=== PATIENT | female | born 1945 | race Caucasian/White ===

== ENCOUNTER 2024-06-19 07:42 | Day surgery (SDC) | payer OTHER, SELFPAY ==
[2024-06-19] VITALS (7 sets, daily range): BP systolic 108–129; BP diastolic 56–78; PULSE 59–68; RESP 16–18; TEMP 36.3–37.4; O2SAT 95–97; BMI 28.9
--- NOTE | 2024-06-19 08:37 | PCM.PRE.AN2 ---
ASA Classification* ASA Classification ASA Classification: 2 Assessment & Plan Anesthesia* Anesthesia Assessment Anesthesia Assessment: Discussed sedation and/or anesthesia options, risks, benefits, and alternatives with patient/parents/legal guardian/POA. Questions invited. The patient/parents/legal guardian/POA seems to understand and agrees to proceed with anesthesia plan. Reviewed the physical assessment, medical history, allergy history and patient home medications list prior to surgery/procedure/anesthetic and documented any changes. Performed airway and anesthesia risk assessments. 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 When Was Last Pacemaker Check QUESTION #4 FULL TEXT: You/Your Family Experience fever (hyperthermia) with Anesthesia Last Oral Intake Last Oral intake: Last Oral Intake NPO since 04:30 06/19/24 08:08 Meds taken in AM with sips of Yes 06/19/24 08:08 water? Meds patient instructed to AMLODIPINE,SYNTHROID 06/19/24 08:08 take am of surgery Any additional information?: Yes NPO since: 04:30 (Patient took her meds with sips of water at 4:30 AM.) Meds taken in AM with sips of water?: Yes PONV PONV - plant protection officer: PONV - plant protection officer Female Yes 06/18/24 11:52 HX of Motion Sickness No 06/18/24 11:52 HX of N/V After Surgery No 06/18/24 11:52 Non-Smoker Yes 06/18/24 11:52 Duration of Surgery greater No 06/18/24 11:52 than 60 minutes Number of Risk Factors 2 06/18/24 11:52 PONV Score Moderate Risk 06/18/24 11:52 Height & Weight Height & Weight: Anesthesia: Height & Weight Height 5 ft 3 in 06/19/24 08:08 Weight: 74 kg 06/19/24 08:08 Body Mass Index (BMI) 28.9 06/19/24 08:08 Respiratory Assessment Respiratory Assessment - plant protection officer: Respiratory Tract Infection Hx - plant protection officer Hx Respiratory Tract Infection No 06/18/24 11:52 STOP Sleep Apnea STOP Sleep Apnea - plant protection officer: STOP Sleep Apnea - plant protection officer Hx Hypertension Yes: CONTROLLED WITH MED 06/18/24 11:52 Hx Sleep Apnea No 06/18/24 11:52 CPAP BIPAP Do you snore loudly (louder No 06/18/24 11:52 than talking or can be heard Do you often feel tired/ No 06/18/24 11:52 fatigued/ sleepy during daytime? Has anyone observed you stop No 06/18/24 11:52 breathing during sleep? STOP Results Negative 06/18/24 11:52 QUESTION #5 FULL TEXT : Do you snore loudly (louder than talking or can be heard through closed doors)? 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 Specify any problems Hx of Preganancy in last 3 No 06/18/24 11:52 Months Nurse Filling Out Transfusion DSCHRIBER 06/18/24 11:52 & Questions: Date: 06/18/24 06/18/24 11:52 Time: 11:53 06/18/24 11:52 Patient unable to answer at this time (ie. confused, unrespo /Reproduction History /Reproductive History - plant protection officer: /Reproductive Hx- plant protection officer Hx Now No 06/18/24 11:52 Gestational Age (in weeks): EDC: Hx Hx Para Hx Section SAB No 06/18/24 11:52 PFSH Medical History Wears partial dentures Post-menopausal Alcohol use High cholesterol Gastric reflux Non-smoker Thyroid disease HTN (hypertension) Home Medications ?Medication ?Instructions ?Recorded ?Last Taken ?Type amlodipine 10 mg tablet 10 mg PO QDAY 05/15/24 06/19/24 History atorvastatin 80 mg tablet 80 mg PO QHS 05/15/24 06/18/24 History levothyroxine 100 mcg tablet 100 mcg PO QDAY 05/15/24 06/19/24 History (Synthroid) omeprazole 20 mg capsule,delayed 20 mg PO QDAY 05/15/24 06/18/24 History release ibuprofen 800 mg tablet (IBU) 800 mg PO Q8H PRN pain 06/18/24 Unknown History Allergy/AdvReac Type Severity Reaction Status Date / Time No Known Allergies Allergy Verified 06/19/24 08:06 Family History Mother Heart disease Hypertension Father Heart disease Hypertension Son Heart disease Hypertension Surgical History History of cardiac catheterization Hx of right cataract extraction Hx of left cataract extraction Hx of colonoscopy H/O thyroidectomy Social History Smoking Status: Never smoker alcohol intake: current Review of Systems (Anesthesia) ROS Narrative System reviewed and no additional complaints, except as documented.
--- NOTE | 2024-06-19 09:00 | COLBX_PTH ---
PATIENT: CAROLYNN MORLEY LOC: EN U#:[id number] AGE/SX: 79/F ROOM: RE06/19/[address]: Dr. Greg Franklin MD : 1945 BED: DIS: 06/19/2024 SPEC #: [id number] RECD: 06/19/24 13:27 STATUS: RENATO KAITLIN #: [id number] AMA: 06/19/24 09:[address]: Greg Franklin DEPT: SURGICAL PATHOLOGY RECD BY: Chris Hernandez ENTERED: 06/19/24 13:27 SP TYPE: COLON BX ALVARADO DR: JUA NMIGUEL SWANN Tissues: A - Sigmoid colon biopsy Procedures: Surgery Specimen Level IV HEADER OPERATION: Colonoscopy with biopsy PRE-OP DIAGNOSIS: Encounter for screening for malignant neoplasm of colon TISSUE SUBMITTED: A- Sigmoid polyp biopsy x2 MICROSCOPIC DIAGNOSIS A. Sigmoid colon, polyp x2, biopsy: * Hyperplastic polyp x2. MICROSCOPIC DESCRIPTION Slides are reviewed. GROSS DESCRIPTION A. Received in fixative is one container labeled with the patient's name and designated Sigmoid polyp biopsy x2. The specimen consists of multiple irregular fragments of light carter soft tissue that in aggregate measure 1.4 x 0.2 x 0.2 cm. The specimen is totally submitted in one cassette. CRIS/ 06/19/2024 CPT:60715
--- NOTE | 2024-06-19 09:24 | PCM.HP.STD ---
HPI - General General Date of Admission: 06/19/24 Date of Service: 06/19/24 Chief Complaint: Colonoscopy HPI Narrative The patient is a 79-year-old female who is being seen today for a colonoscopy. She states that her last colonoscopy was about 19 years ago scheduled through the [place]. She had no polyps at that time. She denies any family history of any colon polyps or colon cancers that she is aware of. She denies any recent GI issues or problems such as blood in her stool, or black or tarry stools [facility] Medical History (Reviewed 06/19/24 @ 09: by Dr. Greg Franklin MD) Wears partial dentures Post-menopausal Alcohol use High cholesterol Gastric reflux Non-smoker Thyroid disease HTN (hypertension) Home Medications ?Medication ?Instructions ?Recorded ?Last Taken ?Type amlodipine 10 mg tablet 10 mg PO QDAY 05/15/24 06/19/24 History atorvastatin 80 mg tablet 80 mg PO QHS 05/15/24 06/18/24 History levothyroxine 100 mcg tablet 100 mcg PO QDAY 05/15/24 06/19/24 History (Synthroid) omeprazole 20 mg capsule,delayed 20 mg PO QDAY 05/15/24 06/18/24 History release ibuprofen 800 mg tablet (IBU) 800 mg PO Q8H PRN pain 06/18/24 Unknown History Allergy/AdvReac Type Severity Reaction Status Date / Time No Known Allergies Allergy Verified 06/19/24 08:06 Family History Mother Heart disease Hypertension Father Heart disease Hypertension Son Heart disease Hypertension Surgical History History of cardiac catheterization Hx of right cataract extraction Hx of left cataract extraction Hx of colonoscopy H/O thyroidectomy Social History Smoking Status: Never smoker alcohol intake: current Vital Signs Vital Signs Vital Signs: 06/19/24 08:08 06/19/24 08:08 06/19/24 08:42 Temperature 99.3 F H 99.3 F H Temperature Source Temporal Pulse Rate 68 68 Respiratory Rate 16 16 Respiratory Pattern Normal Blood Pressure 129/78 H 129/78 H Blood Pressure Mean 95 Blood Pressure Source Monitor Blood Pressure Position Sitting Blood Pressure Location Right Arm Pulse Ox 97 97 Oxygen Delivery Method Room Air Room Air Weight Weight: 163 lb 2.273 oz Body Mass Index (BMI) 28.9 Physical Exam Const alert, oriented x3 and no apparent distress Assessment & Plan Assessment/Plan (1) Encounter for screening for malignant neoplasm of colon: PLAN: Plan Patient is a 79-year-old female in need of a screening colonoscopy. Last colonoscopy was about 19 years ago. She denies any new issues or complaints. We reviewed the details of the planned procedure as well as risks benefits and alternatives. She wishes to proceed. This will begin momentarily
--- NOTE | 2024-06-19 10:08 | OP.COLON_ITS ---
Patient Name: Lorena Rogers Procedure Date: 06/19/2024 9:24 AM Date of : 1945 Age: 79 Procedure: Colonoscopy Indications: Screening for colorectal malignant neoplasm Providers: Greg Franklin MD Referring MD: Brandan Dominguez Medicines: Monitored Anesthesia Care Patient Profile: Refer to note in patient chart for documentation of history and physical. Last Colonoscopy: more than 10 years ago. Complications: No immediate complications. Estimated blood loss: Minimal. Procedure: Pre-Anesthesia Assessment: - Prior to the procedure, a History and Physical was performed, and patient medications and allergies were reviewed. The patient's tolerance of previous anesthesia was also reviewed. The risks and benefits of the procedure and the sedation options and risks were discussed with the patient. All questions were answered, and informed consent was obtained. Prior Anticoagulants: The patient has taken no anticoagulant or antiplatelet agents. ASA Grade Assessment: II - A patient with mild systemic disease. After reviewing the risks and benefits, the patient was deemed in satisfactory condition to undergo the procedure. After I obtained informed consent, the scope was passed under direct vision. Throughout the procedure, the patient's blood pressure, pulse, and oxygen saturations were monitored continuously. The adult colonoscope was introduced through the anus and advanced to the cecum, identified by the appendiceal orifice, ileocecal valve and palpation. The ileocecal valve, appendiceal orifice, and rectum were photographed. The entire colon was well visualized. The colonoscopy was performed without difficulty. The patient tolerated the procedure well. The quality of the bowel preparation was adequate. Moderate Sedation: See the other procedure note for documentation of moderate sedation with intraservice time. Scope In: 9:40:07 AM Scope Withdrawal Time 0 hours 11 minutes 2 seconds Scope Out: 10:01:35 AM Total Procedure Duration Time 0 hours 21 minutes 28 seconds Findings: The perianal and digital rectal examinations were normal. A few small-mouthed diverticula were found in the sigmoid colon. Two semi-sessile polyps were found in the sigmoid colon. The polyps were 2 to 3 mm in size. These polyps were removed with a cold biopsy forceps. Resection and retrieval were complete. Verification of patient identification for the specimen was done by the nurse using the patient's name, date and medical record number. Estimated blood loss was minimal. The exam was otherwise without abnormality on direct and retroflexion views. Impression: - Diverticulosis in the sigmoid colon. - Two 2 to 3 mm polyps in the sigmoid colon, removed with a cold biopsy forceps. Resected and retrieved. - The examination was otherwise normal on direct and retroflexion views. Recommendation: - Discharge patient to home (ambulatory). - High fiber diet indefinitely. - Await pathology results. - Repeat colonoscopy in 5 years for surveillance. - Return to my office PRN. - Continue present medications. Procedure Code(s): --- Professional --- 39759, Colonoscopy, flexible; with biopsy, single or multiple Diagnosis Code(s): --- Professional --- Z12.11, Encounter for screening for malignant neoplasm of colon K57.30, Diverticulosis of large intestine without perforation or abscess without bleeding D12.5, Benign neoplasm of sigmoid colon CPT copyright 2021 [employer]. All rights reserved. The codes documented in this report are preliminary and upon deep fat cook fry review may be revised to meet current compliance requirements. Greg Franklin MD 06/19/2024 10:07:59 AM This report has been signed electronically. Number of Addenda: 0 Note Initiated On: 06/19/2024 9:24 AM
--- NOTE | 2024-06-19 10:08 | OP.CCLET_ITS ---
06/19/2024 Brandan Dominguez Re : Colonoscopy procedure for Lorena Rogers Dear Dre This procedure was performed on Wednesday, June 19, 2024. My impressions and recommendations are as follows: Impressions : - Diverticulosis in the sigmoid colon. - Two 2 to 3 mm polyps in the sigmoid colon, removed with a cold biopsy forceps. Resected and retrieved. - The examination was otherwise normal on direct and retroflexion views. Recommendations : - Discharge patient to home (ambulatory). - High fiber diet indefinitely. - Await pathology results. - Repeat colonoscopy in 5 years for surveillance. - Return to my office PRN. - Continue present medications. My findings are described in the full procedure note, which is enclosed. If I can be of further assistance, please feel free to contact me at . Sincerely, Greg Franklin MD 06/19/2024 10:07:59 AM This report has been signed electronically.
--- NOTE | 2024-06-19 10:10 | PCM.POST.ANE ---
Anesthesia: Postop Eval I Current Vital Signs Temperature: 97.4 F Pulse Rate: 64 Blood Pressure: 108/58 Respiratory Rate: 16 Pulse Ox: 97 Oxygen Delivery Method: Room Air Assessment Airway patent: Yes Spontaneous unlabored respirations: Yes Mental status: Awake and Calm nausea: No Vomiting: No Anesthesia Complication: No Fluid Hydration Crystalloid volume administer (ml): 55 Total IV fluid infused: 55 Progress Note Anesthesia document: Postop Eval 1 completed: Yes
--- NOTE | 2024-06-19 12:31 | PCM.POSTANE2 ---
Anesthesia Postop Eval I Sum Postop Eval Completion status Anesthesia document: Postop Eval 1 completed: Yes Anesthesia Postop Eval I Summary Anesthesia Postop Eval I Summary: Anesthesia Postop Eval I: Assessment Summary Airway patent Yes 06/19/24 10:18 [email or web address] Spontaneous unlabored Yes 06/19/24 10:18 [email or web address] respirations Mental status Awake,Calm 06/19/24 10:18 [email or web address] nausea No 06/19/24 10:18 [email or web address] Vomiting No 06/19/24 10:18 [email or web address] Anesthesia Postop Eval I: Fluid Summary Crystalloid volume administer 55 06/19/24 10:18 [email or web address] (ml) Colloids volume administered ( ml) Blood Product volume administered (ml) Total IV fluid infused 55 06/19/24 10:18 [email or web address] Anesthesia Postop Eval I: Summary Notes Anesthesia Complication No 06/19/24 10:18 [email or web address] Anesthesia Complication Comment: Post-operative progress note Anesthesia: Postop Eval II Evaluation Mental status: Awake and Calm Pain Level: 0 nausea: No Vomiting: No Complications Anesthesia Complication: No
== END 2024-06-19 10:38 | disposition home or self-care (01) ==
LOC: EN 07:45 → AC 07:46
PROVIDERS: PCP Nurse Practitioner Family; Referring Provider Nurse Practitioner Family; Visit Provider Surgery
PROC: 0DJD8ZZ Inspection of Lower Intestinal Tract, Via Natural or Artificial Opening Endoscopic (ICD-10-PCS; CPT 45378; principal; 2024-06-19 08:55)
DX: Z12.11 Encounter for screening for malignant neoplasm of colon (principal); D12.5 Benign neoplasm of sigmoid colon; K57.30 Diverticulosis of large intestine without perforation or abscess without bleeding; I10 Essential (primary) hypertension; E78.00 Pure hypercholesterolemia, unspecified; Z79.899 Other long term (current) drug therapy
CPT/HCPCS: 45380; 88305; A4216; J2405